=== PATIENT | female | born 1985 | race African-American/Black ===

== ENCOUNTER 2017-07-14 03:00 | Emergency (ER) | payer MEDICAID ==
[~2017-07-14] VITALS: Ht 162.6 cm; Wt 66.0 kg
[~2017-07-14 03:00] MED LIST: BENADRYL; GEODON; LORA-250
[2017-07-14 03:27] VITALS: BP 115/85
== END 2017-07-14 13:30 | disposition left against medical advice (07) ==
LOC: ER 03:00
DX: R10.9 Unspecified abdominal pain (principal); Z53.21 Procedure and treatment not carried out due to patient leaving prior to being seen by health care provider